=== PATIENT | male | born 1970 | race African-American/Black ===

== ENCOUNTER → 2016-12-03 | Outpatient (CLI) | payer OTHER ==
--- NOTE | ~2016-12-03 | US85 ---
[facility] A Service of [facility] & [facility] RADIOLOGY TEXT RESULTS PATIENT: KENDRA KELSEY LOCATION: CNIV : 70 UNIT #: [id number] AGE: [address]: EMILE PRICE SEX: M ORDER DR: [id number] [facility] [address] [place], [place] [address] [id number] O MR#: [id number] Acc #: [id number] NAME: KENDRA KELSEY : 1970 SEX: M STUDY DATE/TIME: 12/03/2016 10:59 UNIT: [facility] ROOM: STUDY DESCRIPTION: [facility] [employer] Attending Physician: Barry Starkey Referring Physician: Barry Starkey Ordering Physician: Barry Starkey Primary Care Physician: Irma Willis M.D. MEDICAL IMAGING REPORT This report is preliminary unless electronic signature is present EXAM Left lower extremity venous duplex, 12/03/2016 HISTORY Left lower extremity pain and edema for 2 weeks. Evaluate for deep vein thrombosis. FINDINGS Ortiz-scale images of the left lower extremity were obtained as well as Doppler waveform spectral analysis and color flow Doppler imaging. The examination is markedly abnormal demonstrating occlusive thrombus within the left superficial femoral vein and left popliteal vein as well as the anterior and posterior tibial veins and the left peroneal vein. Normal blood flow and compressibility is seen in the left common femoral vein and deep femoral vein. Occlusive thrombus is seen in the distal left greater saphenous vein which is characteristic of superficial thrombophlebitis. Findings were called to the ordering clinician Dr. Price by the cardiology technologist at 11 a.m. on 12/03/2016. IMPRESSION 1. Markedly abnormal examination demonstrating occlusive thrombus in the left superficial femoral vein and left popliteal vein as well as the deep veins of the left calf. 2. Occlusive thrombus in the distal left greater saphenous vein characteristic of superficial thrombophlebitis. 3. Findings called to the ordering clinician by the cardiology technologist as detailed above. STAT * RESULT Dictated by... [facility] A Service of [facility] & [facility] RADIOLOGY TEXT RESULTS PATIENT: KENDRA KELSEY LOCATION: [facility] : [birth year] UNIT #: [id number] AGE: [address]: EMILE PRICE SEX: M ORDER DR: Edison Apodaca M.D. THIS IS AN ELECTRONICALLY VERIFIED REPORT Edison Apodaca M.D. at 12/03/2016 5:05 PM NAHID/stacie TD: 12/03/2016 11:36 JOB #: [id number] MEDICAL IMAGING REPORT Page 1 of 1 COPY
== END | disposition home or self-care (01) ==
LOC: CNIV 10:25
DX: M79.89 Other specified soft tissue disorders (principal); M79.605 Pain in left leg; I82.812 Embolism and thrombosis of superficial veins of left lower extremity; I82.4Z2 Acute embolism and thrombosis of unspecified deep veins of left distal lower extremity; I82.432 Acute embolism and thrombosis of left popliteal vein
CPT/HCPCS: 93971